=== PATIENT | female | born 1995 | race Caucasian/White ===

== ENCOUNTER 2020-11-02 17:02 | Emergency (ER) | payer BC ==
[2020-11-02 17:24] VITALS: RESP 18; TEMP 98.5
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
[2020-11-02 19:04] VITALS: BP 128/58; PULSE 92
== END 2020-11-02 19:09 | disposition home or self-care (01) ==
LOC: EC 17:02
DX: S06.0X0A Concussion without loss of consciousness, initial encounter (principal); F41.9 Anxiety disorder, unspecified; F32.9 Major depressive disorder, single episode, unspecified; Z79.899 Other long term (current) drug therapy; Z91.040 Latex allergy status; V49.9XXA Car occupant (driver) (passenger) injured in unspecified traffic accident, initial encounter; Y92.410 Unspecified street and highway as the place of occurrence of the external cause; Y93.89 Activity, other specified
CPT/HCPCS: 70450; 81025; 99284